=== PATIENT | male | born 1970 | race Caucasian/White ===

== ENCOUNTER 2018-06-12 11:24 | Emergency (ER) | payer OTHER, SELFPAY ==
[2018-06-12 11:25] VITALS: BP 161/84; PULSE 104; RESP 20; TEMP 36.5; O2SAT 100; BMI 38.5
--- NOTE | 2018-06-12 11:33 | NURSING ---
NO OLD EKGS
--- NOTE | 2018-06-12 11:40 | EKG12_ITS ---
Test Reason : CP Blood Pressure : / mmHG Vent. Rate : 107 BPM Atrial Rate : 107 BPM P-R Int : 136 ms QRS Dur : 088 ms QT Int : 354 ms P-R-T Axes : -03 -28 025 degrees QTc Int : 472 ms Sinus tachycardia Otherwise normal ECG Confirmed by MIN IBANEZ, ROQUE ([id number]), copy editor NELI FATIMA ([id number]) on 06/15/2018 1:34:15 PM Referred By: ISIDRO Confirmed By:ROQUE COPELAND MD
[2018-06-12] MEDS: 0.9% Normal Saline 1,000 ML 125 ML IV (11:45)
[2018-06-12] MEDS: proMETHazine 25 MG/ML Syringe 12.5 MG IV (11:45)
[2018-06-12 11:55] LABS: Absolute Lymphocyte Count 1.64 X10^3/ul (0.83-4.51); Absolute Neutrophil Count 6.6 X10^3/uL (2.0-7.7); Basophil# 0.02 X10^3/uL; Basophil% 0.2 % (0-1); Eosinophil# 0.04 X10^3/uL; Eosinophils% 0.4 % (0-5); Hematocrit 40.3 % (40-54); Hemoglobin 13.7 g/dl (13.0-16.5); Lymphocyte # 1.64 X10^3/ul (4.0); Lymphocyte % 18.4 % (19-41); Mean Corpuscular Hgb 31.5 pg (27.0-32.0); Mean Corpuscular Volume 92.6 fL (80-94); Mean Platelet Vol. 9.9 fl (6.2-12.0); Monocyte# 0.63 X10^3/uL; Monocyte% 7.1 % (0-10); Neutrophil # 6.56 X10^3/uL (2.7-7.7); Neutrophil % 73.8 % (47-70); POSITIVE COUNT NO; POSITIVE DIFFERENTIAL NO; POSITIVE MORPHOLOGY NO; Platelet Count 245 K/mm3 (150-450); RBC Distribution Width CV 12.9 % (11.6-14.6); RBC Distribution Width SD 43.5 fl (35.1-43.9); Red Blood Count 4.35 M/mm3 (4.6-6.2); White Blood Count 8.9 K/mm3 (4.4-11.0)
[2018-06-12 12:05] LABS: AST(SGOT) 15 U/L (15-37); Alanine Aminotransfer ALT/SGPT 30 U/L (16-61); Alkaline Phosphatase 94 U/L (45-117); Anion Gap 10 (5-15); BUN 13 mg/dL (7-18); BUN/Creat Ratio 13.1 RATIO (10-20); Calcium,Total 9.2 mg/dL (8.5-10.1); Chloride 108 mmol/L (98-107); Creatinine, Serum 0.99 mg/dL (0.70-1.30); EST Glomerular Filtration Rate 86 mL/min (>60); Est Glom Filt Rate - Afr Amer 105 mL/min (>60); Estimated Creatinine Clearance 109.55 ml/min; Glucose 107 mg/dL (74-106); Lipase 89 U/L (73-393); Potassium 3.7 mmol/L (3.5-5.1); Sodium Level 143 mmol/L (136-145)
--- NOTE | 2018-06-12 12:10 | CT_ITS ---
STUDY: CT ABDOMEN AND PELVIS WITHOUT CONTRAST REASON FOR EXAM: Male, 47 years old. Epigastric pain RADIATION DOSAGE (If Supplied By Facility): CTDIvol = ( 21.89 ) mGy, DLP = ( 1257.88 ) mGycm TECHNIQUE: Transaxial images were obtained from the dome of the diaphragm to the symphysis pubis without oral contrast, and without intravenous contrast. Sagittal and coronal images were reconstructed. Individualized dose optimization techniques were used for this CT. COMPARISON: None. FINDINGS: The visualized lung bases are unremarkable. The visualized portions of the heart are within normal limits. Normal liver. Normal gallbladder and extrahepatic biliary system. Normal spleen. Normal pancreas. Normal bilateral adrenal glands. Normal right kidney. Normal left kidney. There is a hiatal hernia. The stomach appears decompressed. Normal small intestine. There is a minimal amount of stool in the colon. There are few scattered diverticula present without diverticulitis. There is non-visualization of the appendix. Normal abdominal aorta. Normal inferior vena cava. Normal retroperitoneum. Normal urinary bladder. Normal visualized prostate gland. There is a small umbilical hernia containing fat. There is multilevel spondylosis. At the level of L3-L4 there is a broad disc bulge moderate neural foramina narrowing minimal central stenosis. At L4-L5 there is a broad disc bulge moderate neural foramina narrowing without central stenosis. CT/Abdomen/Pelvis without Cont IMPRESSION: Minimal diverticulosis no evidence of diverticulitis. No radiographic evidence of cholecystitis. No visualized renal ureteral bladder calculi. Minimal hiatal hernia hernia. Nonvisualization of the appendix which is likely been removed. Electronically Signed: Zee Phillips MD at 13:49 EST Tel , Service support ,
[2018-06-12 12:25] VITALS: BP 139/80; PULSE 88; RESP 19; O2SAT 97
[2018-06-12] MEDS: LORazepam 2 MG/ML Syringe 1 MG IV (12:28)
[2018-06-12] MEDS: Mag Hydrox/Al Hydrox/Simeth 30 ML UDC PO (12:28)
[2018-06-12 13:00] VITALS: BP 126/93; PULSE 94; RESP 19; O2SAT 97
--- NOTE | 2018-06-12 13:19 | RAD_ITS ---
STUDY: X-RAY CHEST REASON FOR EXAM: Male, 47 years old. Chest pain TECHNIQUE: AP COMPARISON: None. FINDINGS: EKG leads project over the chest. The lungs are clear and expanded. There is no demonstrated pleural abnormality. Normal size heart. Normal mediastinum and santiago. Normal visualized pulmonary arteries. Normal visualized aortic arch and descending thoracic aorta. Normal visualized thoracic spine. Normal visualized ribs, clavicles, and shoulders. There is no demonstrated abnormality of the visualized soft tissue structures of the upper abdomen. RAD/Chest 1 View (Portable) IMPRESSION: Nonacute portable x-ray examination of the chest. Electronically Signed: Dave Suarez MD at 13:53 EST , Service support ,
--- NOTE | 2018-06-12 14:05 | ED.VISSUMM ---
- ER Visit Summary Date of Service: 06/12/18 Chief Complaint: [Chest pain] History of Present Illness: The patient is a 47 M [presents the emergency department with chest and abdomen pain that started around 9 AM this morning. Patient states that he was drinking with some friends last evening and he is normally not much of an alcohol drinker but had 3 drinks last night. Patient thought that when he woke up and was not feeling well that was probably related to drinking. Patient describes discomfort in his epigastric region that kind of radiates into the chest. Patient feels very shaky. Patient's had nausea and he did vomit last night. He denies any fever. He denies recent illness otherwise. Patient has a history of high cholesterol and questions that he may have had pancreatitis in the past. Patient does have a history of some anxiety.] Physical Examination: [HEENT-PERRLA, EOMI. Cranial nerves II through XII grossly intact. TMs clear. Mucous membranes moist. No adenopathy. Cardiovascular-regular rate and rhythm without murmur or ectopy Lungs-clear to auscultation, chest wall stable without crepitus or subcu emphysema Abdomen-normoactive bowel sounds, soft. Patient does have tenderness in the epigastric region with some guarding. There is no rebound, rigidity, or perineal signs. Extremities-intact ?4, normal range of motion, normal pulses, atraumatic] Test Results: [EKG obtained arrival shows sinus rhythm with a ventricular rate of 107 bpm with no acute I segment changes. CBC with differential is normal. Chemistries are normal. LFTs normal. Lipase normal. Troponin was less than 0.015. D-dimer was normal. Chest x-ray was normal. CT scan abdomen pelvis without contrast was unremarkable.] Emergency Department Course and Treatment: [Patient received Zofran initially but continued complaint of nausea and then was given Phenergan. Patient received a GI cocktail and a milligram of Ativan and felt significantly improved after treatment.] Treatment Plan: [Patient does not want any meds for home but states that he will follow-up with his primary care physician in [place].] Disposition: [Discharged home in stable condition] Impression: [Abdominal pain-etiology uncertain although I suspect gastritis Anxiety] This note was generated with [employer] software. It may contain incorrect words, spelling, and punctuation that were not noted in review of the chart prior to signing ED Disposition - Plan for ED Patient: Chief Complaint: Chest Pain Referrals: [facility] Doctor,Out of [Primary Care Provider] -
--- NOTE | 2018-06-12 14:08 | ED.DCSUM_ITS ---
- ER Visit Summary Date of Service: 06/12/18 Chief Complaint: [Chest pain] History of Present Illness: The patient is a 47 M [presents the emergency department with chest and abdomen pain that started around 9 AM this morning. Patient states that he was drinking with some friends last evening and he is nor kary not much of an alcohol drinker but had 3 drinks last night. Patient thought that when he woke up and was not feeling well that was probably related to drinking. Patient describes discomfort in his epigastric region that kind of radiates into the chest. Patient feels very shaky. Patient's had nausea and he did vomit last night. He denies any fever. He denies recent illness otherwise. Patient has a history of high cholesterol and questions that he may have had pancreatitis in the past. Patient does have a history of some anxiety.] Physical Examination: [HEENT-PERRLA, EOMI. Cranial nerves II through XII grossly intact. TMs clear. Mucous membranes moist. No adenopathy. Cardiovascular-regular rate and rhythm without murmur or ectopy Lungs-clear to auscultation, chest wall stable without crepitus or subcu emphysema Abdomen-normoactive bowel sounds, soft. Patient does have tenderness in the epigastric region with some guarding. There is no rebound, rigidity, or perineal signs. Extremities-intact ?4, normal range of motion, normal pulses, atraumatic] Test Results: [EKG obtained arrival shows sinus rhythm with a ventricular rate of 107 bpm with no acute I segment changes. CBC with differential is normal. Chemistries are normal. LFTs normal. Lipase normal. Troponin was less than 0.015. D-dimer was normal. Chest x-ray was normal. CT scan abdomen pelvis without contrast was unremarkable.] Emergency Department Course and Treatment: [Patient received Zofran initially but continued complaint of nausea and then was given Phenergan. Patient received a GI cocktail and a milligram of Ativan and felt significantly improved after treatment.] Treatment Plan: [Patient does not want any meds for home but states that he will follow-up with his primary care physician in [place].] Disposition: [Discharged home in stable condition] Impression: [Abdominal pain-etiology uncertain although I suspect gastritis Anxiety] This note was generated with Mobile [employer]hentication[employer] software. It may contain incorrect words, spelling, and punctuation that were not noted in review of the chart prior to signing ED Disposition - Plan for ED Patient: Chief Complaint: Chest Pain Referrals: [facility] Doctor,Out of [Primary Care Provider] -
--- NOTE | 2018-06-12 14:09 | ED.DEP ---
ED Disposition - Plan for ED Patient: Chief Complaint: Chest Pain Instructions: ED Abdominal Pain Unkn Cause Male, ED Stress React Referrals: [facility] Doctor,Out of [Primary Care Provider] - 3-5 Days
[2018-06-12 14:24] VITALS: BP 155/79; PULSE 97; RESP 14; O2SAT 96
== END 2018-06-12 14:25 | disposition home or self-care (01) ==
LOC: ED 12:36
PROVIDERS: Emergency Provider Emergency Medicine
DX: K29.70 Gastritis, unspecified, without bleeding (principal); R10.9 Unspecified abdominal pain; E78.00 Pure hypercholesterolemia, unspecified; F10.239 Alcohol dependence with withdrawal, unspecified; F41.9 Anxiety disorder, unspecified; Z79.899 Other long term (current) drug therapy
CPT/HCPCS: 71045; 74176; 80053; 83690; 84484; 85025; 93005; 96361; 96374; 96375; 99285; J7030; A4216